=== PATIENT | female | born 1965 | race Asian ===

== ENCOUNTER 2017-06-30 12:45 | Day surgery (SDC) | payer OTHER ==
[~2017-06-30 12:45] MED LIST: CEFAZOLIN 1 GM INJ
[2017-06-30] MEDS ORDERED: PROPOFOL 20 ML (14:26)
[2017-06-30] MEDS ORDERED: ROCURONIUM 50 MG INJ (14:28)
[2017-06-30] MEDS ORDERED: DEXAMETHASONE 4 MG/ML 1 ML INJ (14:42)
[2017-06-30] MEDS: OXYMETAZOLINE 0.05% 15 ML NAS SPRAY NASAL (14:59)
[2017-06-30] MEDS ORDERED: SUGAMMADEX SODIUM 200 MG/2 ML VIAL IV (15:01)
[2017-06-30] MEDS ORDERED: CEFAZOLIN 1 GM INJ (15:09)
[2017-06-30] MEDS ORDERED: ONDANSETRON 4 MG INJ (15:10)
[2017-06-30] MEDS ORDERED: HYDROmorphONE (0.2 MG/ML) 10ML SYG IV ×3 (15:19→15:30)
[2017-06-30] MEDS ORDERED: DIPHENHYDRAMINE 50 MG INJ IV (15:30)
[2017-06-30] MEDS ORDERED: EPHEDrine SULFATE 50 MG/5 ML SYG IV (15:30)
[2017-06-30] MEDS ORDERED: MIDAZOLAM 1 MG/ML 2 ML INJ IV (15:30)
[2017-06-30] MEDS ORDERED: FENTAnyl 50 MCG/ML VIAL IV ×3 (15:30)
[2017-06-30] MEDS ORDERED: METOCLOPRAMIDE 10 MG INJ IV (15:30)
[2017-06-30] MEDS ORDERED: OXYCODONE/ACETAMINOPHEN (5/325) TAB PO ×2 (15:30)
[2017-06-30] MEDS ORDERED: ALBUTEROL 0.083% (NEB) 2.5 MG/3 ML AMP HHN (15:30)
[2017-06-30] MEDS ORDERED: LABETALOL HCL 20MG INJ IV (15:30)
[2017-06-30] MEDS ORDERED: KETOROLAC 30 MG INJ IV (15:30)
[2017-06-30] MEDS ORDERED: HYDROCODONE/APAP (5/325) TAB PO (15:30)
[2017-06-30] MEDS ORDERED: hydrALAzine 20 MG INJ IV (15:30)
[2017-06-30] MEDS: MEPERIDINE 25 MG INJ IV (16:08)
[2017-06-30] MEDS: ONDANSETRON 4 MG INJ IV (16:08)
[2017-06-30] MEDS: HYDROmorphONE (0.2 MG/ML) 10ML SYG IV (16:09)
== END 2017-06-30 16:51 | disposition home or self-care (01) ==
LOC: SDS 12:45
DX: J35.1 Hypertrophy of tonsils (principal); J39.2 Other diseases of pharynx; I10 Essential (primary) hypertension
CPT/HCPCS: 42826; 71045; 82962; 84703; 88304; 93005